=== PATIENT | female | born 1990 | race Caucasian/White ===

== ENCOUNTER 2018-07-11 20:25 | Emergency (ER) | payer BC, OTHER ==
--- NOTE | 2018-07-11 20:42 | UC ---
Laceration HPI - HPI Summary HPI Summary: 27 yo female presents with laceration to middle finger. She tells me that she was slicing potatoes and the knife slipped and she cut the dorsal aspect of her left middle finger. She washed it well with water and applied a bandaid. This happened around 1845 today. She admits that she was afraid to look under the bandage therefore came to urgent care for eval. Last tetanus was 2 years ago - History Of Current Complaint Stated Complaint: FINGER LAC Time Seen by Provider: 07/11/18 20:42 Hx Obtained From: Patient Laceration Location: Finger Mechanism Of Injury: Sharp Trauma Onset/Duration: Sudden Onset Pain Intensity: 0 Pain Scale Used: 0-10 Numeric - Allergies/Home Medications Allergies/Adverse Reactions: Allergies Allergy/AdvReac Type Severity Reaction Status Date / Time ampicillin Allergy Rash Verified 07/11/18 20:51 azithromycin Allergy Facial Verified 07/11/18 20:51 Redness/Flushing montelukast [From Singulair] Allergy Rash Verified 07/11/18 20:51 Home Medications: Home Medications NK [No Home Medications Reported] 07/11/18 [History Confirmed 07/11/18] PMH/Surg Hx/FS Hx/Imm Hx - Additional Past Medical History Additional PMH: None - Surgical History Surgical History: Yes Surgery Procedure, Year, and Place: CRANIOTOMY 2010 AT [facility], XRAY DONE, CLEARED BY DR KUMAR. SURGICAL NOTE/PRIOR MRI'S SCANNED INTO [facility]. - Social History Occupation: Employed Full-time Lives: With Family Alcohol Use: Occasionally Substance Use Type: None Smoking Status (MU): Never Smoked Tobacco Review of Systems All Other Systems Reviewed And Are Negative: Yes Constitutional: Positive: Negative Skin: Positive: Other - Laceration left middle finger Respiratory: Positive: Negative Cardiovascular: Positive: Negative Gastrointestinal: Positive: Negative Neurovascular: Positive: Negative Musculoskeletal: Positive: Negative Neurological: Positive: Negative Psychological: Positive: Negative Physical Exam - Summary Physical Exam Summary: GENERAL: NAD. WDWN. No pain distress. SKIN: LEFT MIDDLE FINGER: Dorsal aspect proximal to the DIP with 5mm linear laceration. Well approximated at rest and without bleeding. Wound stays well approximated with DIP and PIP movement in all directions. No pain. CHEST: No accessory muscle use. Breathing comfortably and in no distress. CV: Pulses intact. Cap refill <2seconds NEURO: Alert. PSYCH: Age appropriate behavior. Triage Information Reviewed: Yes Vital Signs: Vital Signs: Temp Pulse Resp BP Pulse Ox 98.8 F 113 16 140/85 100 07/11/18 20:44 07/11/18 20:44 07/11/18 20:44 07/11/18 20:44 07/11/18 20:44 Vital Signs Reviewed: Yes Laceration Repair - Laceration Repair 1 Description: Linear Laceration Size After Repair: Length (cm) - 0.5 Modified For Repair: No Cleansing Completed Via Routine Prep: Yes Closure Material: Skin Adhesive Closure Method: Single Layer Laceration Course/Dx - Course/Dx Course Of Treatment: The area was cleansed with NS. Dermabond was used to glue to wound to hold it's approximation. The wound was bandaged with a band-aid. Pt tolerated procedure well. - Diagnosis Provider Diagnosis: Laceration of left middle finger Discharge - Sign-Out/Discharge Documenting (check all that apply): Patient Departure All imaging exams completed and their final reports reviewed: No Studies - Discharge Plan Condition: Stable Disposition: HOME Patient Education Materials: Skin Adhesive Care (ED) Referrals: No Primary Care Phys,NOPCP [Primary Care Provider] - Additional Instructions: If you develop a fever, shortness of breath, chest pain, new or worsening symptoms - please call your PCP or go to the ED. Your blood pressure was mildly elevated at todays visit. Please see your primary provider within 4 weeks for recheck and re-evaluation. Keep your wound bandaged until well healed - Billing Disposition and Condition Condition: STABLE Disposition: Home
[2018-07-11 20:50] VITALS: BP 140/85
== END 2018-07-11 21:21 | disposition home or self-care (01) ==
LOC: UCEAST 20:25
DX: S61.213A Laceration without foreign body of left middle finger without damage to nail, initial encounter (principal); Z88.0 Allergy status to penicillin; Z88.8 Allergy status to other drugs, medicaments and biological substances; Z88.1 Allergy status to other antibiotic agents; W26.0XXA Contact with knife, initial encounter; Y92.9 Unspecified place or not applicable
CPT/HCPCS: 12001; 99201; G0463

== ENCOUNTER 2022-03-07 14:35 | Inpatient (IN) ==
[2022-03-07] MEDS ORDERED: Nalbuphine 10 MG/ML 1 ML VIAL IV PRN (15:07)
[2022-03-07] MEDS ORDERED: Promethazine INJ(RESTRICTED) 25 MG/ML 1 ml VIAL IV PRN (15:07)
[2022-03-07] MEDS ORDERED: Buffered Lidocaine 1% SYRIN 1 ml INTRADERM ONE (15:07)
[2022-03-07] MEDS ORDERED: Lactated Ringers 1000 ml BAG 1,000 ML IV ONE (15:07)
[2022-03-07] MEDS ORDERED: Oxytocin in LR 20,000 MILLI.UNIT/1,000 ML BAG IV ONE (15:24)
[2022-03-07] MEDS ORDERED: Oxytocin in LR 20,000 MILLI.UNIT/1,000 ML BAG IV SCH ×3 (15:30→20:15)
[2022-03-07 15:43] LABS: Hematocrit 32 % (35-47); Hemoglobin 10.6 g/dL (12.0-16.0); Mean Corpuscular HGB Conc 34 g/dL (31-36); Mean Corpuscular Hemoglobin 30 pg (27-31); Mean Corpuscular Volume 91 fL (80-97); Mean Platelet Volume 7.4 fL (7.4-10.4); Platelet Count 228 10^3/uL (150-450); Red Blood Count 3.47 10^6 /uL (3.70-4.87); Red Cell Distribution Width 14 % (10-15)
[2022-03-07] MEDS ORDERED: Lactated Ringers 1000 ml BAG 1,000 ML IV SCH ×2 (16:00→21:00)
[2022-03-07 16:10] LABS: Urine Benzodiazepine Screen None Detected (None Detect); Urine Cannabinoids Screen None Detected (None Detect); Urine Opiates Screen None Detected (None Detect)
[2022-03-07 18:21] LABS: ABS Basophils 0.1 10^3/ul (0-0.2); ABS Lymphocytes 1.4 10^3/ul (1.0-4.8); ABS Monocytes 1.7 10^3/ul (0-0.8); ABS Neutrophils 14.8 10^3/ul (1.5-7.7); Nucleated Red Blood Cells % 0.1
[2022-03-07] MEDS ORDERED: Dibucaine 1% OINT 28.35 GM TUBE PR PRN (20:12)
[2022-03-07] MEDS ORDERED: Glycerin ADULT 2.4 gm SUPP PR PRN (20:12)
[2022-03-07] MEDS ORDERED: Measles, Mumps,Rubella VACC 0.5 ML/VIAL SUBCUT ONE (20:12)
[2022-03-07] MEDS ORDERED: Witch Hazel PAD JAR TOPICAL PRN (20:12)
[2022-03-08] MEDS ORDERED: Lidocaine 1% VIAL 10 MG/ML VIAL ONE (01:39)
[2022-03-08 07:42] LABS: ABS Basophils 0.1 10^3/ul (0-0.2); ABS Lymphocytes 2.5 10^3/ul (1.0-4.8); ABS Monocytes 1.3 10^3/ul (0-0.8); ABS Neutrophils 14.2 10^3/ul (1.5-7.7); Eosinophil % 0.1 %; Hematocrit 28 % (35-47); Hemoglobin 9.4 g/dL (12.0-16.0); Mean Corpuscular HGB Conc 34 g/dL (31-36); Mean Corpuscular Hemoglobin 31 pg (27-31); Mean Corpuscular Volume 90 fL (80-97); Mean Platelet Volume 7.4 fL (7.4-10.4); Platelet Count 201 10^3/uL (150-450); Red Blood Count 3.09 10^6 /uL (3.70-4.87); Red Cell Distribution Width 14 % (10-15); White Blood Count 18.1 10^3/uL (3.5-10.8)
[2022-03-08 15:36] VITALS: BP 106/69
== END 2022-03-08 20:45 | disposition home or self-care (01) | DRG 807 ==
LOC: MCHOBOUT 14:35 → MCHOB 15:08
PROVIDERS: ADMIT Obstetrics & Gynecology; ATTEND Obstetrics & Gynecology